=== PATIENT | male | born 1980 | race Caucasian/White ===

== ENCOUNTER 2019-09-02 12:44 | Outpatient (CLI) | payer OTHER ==
--- NOTE | 2019-09-02 19:50 | XRAY Report ---
Reason: PAIN IN UNSPECIFIED ANKLE JOINT OF LEFT FOOT Procedure Date: 09/02/2019 Accession Number: [id number] / [id number] Procedure: XR - Ankle 3 View LT CPT Code: Final Report FULL RESULT: EXAM: LEFT ANKLE RADIOGRAPHY EXAM DATE: 09/02/2019 01:10 PM. CLINICAL HISTORY: PAIN IN UNSPECIFIED ANKLE JOINT OF LEFT FOOT. COMPARISON: None. TECHNIQUE: 3 views. FINDINGS: Bones: Irregular bony densities seen just anterior to the dorsal aspect of the talus on the lateral view. Joints: Normal. No effusion. No subluxations. The ankle mortise is normally aligned. Soft Tissues: Soft tissue swelling along the lateral and medial aspect of the ankle. IMPRESSION: 1. Possible avulsion injury along the dorsal aspect of the talus seen only on the lateral view. Correlate with point tenderness. 2. Soft tissue swelling along the lateral and medial aspect of the ankle. RADIA
== END 2019-09-02 12:45 | disposition home or self-care (01) ==
LOC: DI 12:44
PROVIDERS: ATTEND Nurse Practitioner Family
DX: M25.572 Pain in left ankle and joints of left foot (principal); R22.42 Localized swelling, mass and lump, left lower limb

== ENCOUNTER 2021-02-28 19:11 | Emergency (ER) | payer OTHER ==
[2021-02-28] MEDS ORDERED: BUFFERED LIDOCAINE 10 ML SYRINGE SUBQ STA (19:30)
--- NOTE | 2021-02-28 19:31 | ED Physician Documentation ---
History of Present Illness - Stated complaint Stated Complaint: right finger injury - Chief complaint Chief Complaint: Trauma Ext - Additonal information Additional information: 40-year-old right-handed male presents emergency department with an injury to his right ring finger sustained when at home a very heavy 200 pound beam smashed the finger. He did have some fatty contents spill out of the wound at the distal tip. He has intact sensation and movement. Tetanus is up-to-date. Review of Systems Constitutional: reports: Reviewed and negative Nose: reports: Reviewed and negative Throat: reports: Reviewed and negative Cardiac: reports: Reviewed and negative Respiratory: reports: Reviewed and negative Skin: reports: Laceration (s) PD PAST MEDICAL HISTORY - Present Medications Home Medications: Ambulatory Orders Medication Instructions Recorded Confirmed cephALEXin [Keflex] 500 mg PO Q6H #28 cap 02/28/21 - Allergies Allergies/Adverse Reactions: Allergies Allergy/AdvReac Type Severity Reaction Status Date / Time No Known Drug Allergies Allergy Verified 02/28/21 19:21 PD ED PE EXPANDED - Extremities Extremities: Left finger(s) (Swelling and ecchymosis distal right ring finger with superficial laceration and propulsion of fatty contents. Patient is able to flex and extend at DIP) Results - Vitals Vitals: Vital Signs - 24 hr 02/28/21 19:18 Temperature 36.5 C Heart Rate 87 Respiratory 16 Rate Blood Pressure 146/86 H O2 Saturation 98 - Rads (name of study) left finger Radiology: EMP read indepedently (fracture of the righ distal phalynx) Procedures - Laceration (location) finger laceration right ring Wound type: Curved, Into subcut fat Neurovascular status: Sensory intact, Motor intact Tendon involvement: Tendon intact Anesthesia: Lidocaine 1% Wound preparation: Chlorhexadine, Irrigated copiously NS Skin layer closure: Interrupted, Size #-0 - enter number (4), Sutures - enter # (4) Other: Patient tolerated well, No complications, Neurovascular intact, Dressing applied, Tetanus UTD PD MEDICAL DECISION MAKING - ED course Complexity details: reviewed results, considered differential, d/w patient ED course: 40-year-old male presents the emergency department for evaluation of a right ring distal fingertip crush injury sustained when a 200 pound beam rolled on his finger at home. He does have a's laceration to the distal tip of the finger with propulsion of fatty contents. Though the x-ray is not formally interpreted by radiologist I suspect that he has a hairline fracture of the distal phalanx. Thus it was treated as an open fracture. Ceftriaxone given in the emergency department will be started on Keflex. The laceration was closed with 4 sutures. Recommend routine wound care suture removal 7 to 10 days. Emergent return precautions discussed for concerns of infection. Departure - Departure Disposition: 01 Home, Self Care Clinical Impression: Fracture of distal phalanx of right ring finger Qualifiers: Encounter type: initial encounter Fracture type: open Fracture alignment: nondisplaced Qualified Code(s): S62.664B - Nondisplaced fracture of distal phalanx of right ring finger, initial encounter for open fracture Finger laceration Qualifiers: Encounter type: initial encounter Finger: ring finger Damage to nail status: without damage Foreign body presence: without foreign body Laterality: right Qualified Code(s): S61.214A - Laceration without foreign body of right ring finger without damage to nail, initial encounter Instructions: ED Laceration Hand, ED Fx Finger Open Ch Follow-Up: Dipesh Terry MD [Provider Admit Priv/Credential] - Prescriptions: cephALEXin [Keflex] 500 mg PO Q6H #28 cap Comments: [place] you had a crush injury to the distal tip of your right ring finger. Though the x-ray is not formally read, I suspected that you do have a hairline fracture of the distal phalanx. Because this is also associated with a laceration of the finger we have to treat it like an open fracture. Please fill the prescription for the Keflex and begin taking tomorrow. In 24 hours you may gently wash your finger with warm soap and water apply any antibiotic ointment such as bacitracin or Neosporin then a simple bandage. Continue to wear the aluminum finger splint. This should heal with no treatment in the long-term but I do recommend that you follow-up with orthopedics. Please call tomorrow to arrange follow-up in 7 to 10 days. At any point you have concerns of infection, fevers, redness milky drainage or increased pain please return to the ER. Your sutures should be removed in 7 to 10 days time Your prescription was electronically transmitted to the [facility] and [place]
[2021-02-28] MEDS ORDERED: cefTRIAXone 1 GM VIAL IM STA (19:50)
[2021-02-28] MEDS ORDERED: LIDOCAINE 1% 2 ML VIAL MC ONE (19:50)
[2021-02-28] MEDS ORDERED: BUFFERED LIDOCAINE 10 ML SYRINGE ONE (20:05)
[2021-02-28] MEDS ORDERED: LIDOCAINE 1% 2 ML VIAL ONE (20:05)
[2021-02-28] MEDS ORDERED: BACITRACIN ZINC OINT 1 PACKET TOP STA (20:14)
[2021-02-28 20:29] VITALS: BP 134/84
--- NOTE | 2021-02-28 21:31 | XRAY Report ---
PROCEDURE: Finger(s) RT INDICATIONS: ? fx ring finger TECHNIQUE: AP hand, 2 views of the fourth finger(s) acquired. COMPARISON: No FINDINGS: Bones: Nondisplaced tuft fracture of the fourth distal phalanx. Bone alignment remains normal. No cristina picious bony lesions. Soft tissues: No suspicious soft tissue calcifications. IMPRESSION: Nondisplaced fourth distal phalanx tuft fracture. Reviewed by: Cleopatra Milton MD on 02/28/2021 9:30 PM PDT Approved by: Cleopatra Milton MD on 02/28/2021 9:30 PM PDT Station ID: [id number]
== END 2021-02-28 20:28 | disposition home or self-care (01) ==
LOC: ED 19:11
DX: S62.664B Nondisplaced fracture of distal phalanx of right ring finger, initial encounter for open fracture (principal); S67.194A Crushing injury of right ring finger, initial encounter; W20.8XXA Other cause of strike by thrown, projected or falling object, initial encounter; Y92.009 Unspecified place in unspecified non-institutional (private) residence as the place of occurrence of the external cause
CPT/HCPCS: 12001; 99281; 99283